=== PATIENT | male | born 1980 | race Two or more races ===

== ENCOUNTER 2018-07-16 18:04 | Emergency (ER) | payer OTHER, SELFPAY ==
[~2018-07-16] VITALS: Ht 172.7 cm; Wt 81.8 kg
[2018-07-16] MEDS ORDERED: GLUCAGON FOR INJ 1 MG VIAL (J1610) IV STA (18:21)
[2018-07-16 20:26] VITALS: BP 127/78
== END 2018-07-16 21:36 | disposition home or self-care (01) ==
LOC: M ED 18:04
DX: S10.15XA Superficial foreign body of throat, initial encounter (principal); X58.XXXA Exposure to other specified factors, initial encounter; Y92.9 Unspecified place or not applicable; Y93.89 Activity, other specified; Y99.9 Unspecified external cause status; R13.10 Dysphagia, unspecified; F10.20 Alcohol dependence, uncomplicated
CPT/HCPCS: 96374; 99284; J1610

== ENCOUNTER 2018-11-09 11:35 | Day surgery (SDC) | payer OTHER ==
[~2018-11-09] VITALS: Ht 172.7 cm; Wt 85.7 kg
[~2018-11-09 11:35] MED LIST: NS 1,000 ML IV ONE
[2018-11-09] MEDS ORDERED: fentaNYL 100 MCG/2 ML INJECTION (J3010) As Ordered ONE (12:07)
[2018-11-09] MEDS ORDERED: LIDOCAINE 2% INJ 100 MG/5 ML SDV (FOR ANES.) As Ordered ONE (12:08)
[2018-11-09] MEDS ORDERED: PROPOFOL 200 MG/20 ML VIAL As Ordered ONE ×2 (12:08→12:37)
--- NOTE | 2018-11-09 12:44 | ROOR ---
Patient Name: Pedrito Watson Procedure Date: 11/09/2018 12:22 PM Date of : 1980 Age: 38 Room: [facility] Gender: Male Note Status: Finalized Procedure: Upper Endoscopy + Biopsies + Balloon Dilatation Indications: Dysphagia Providers: Daniel Roger MD Referring MD: Rafael ALEJO MD Requesting Provider: Medicines: Monitored Anesthesia Care Complications: No immediate complications. Procedure: Pre-Anesthesia Assessment: - The heart rate, respiratory rate, oxygen saturations, blood pressure, adequacy of pulmonary ventilation, and response to care were monitored throughout the procedure. The Endoscope was introduced through the mouth, and advanced to the second part of duodenum. The upper GI endoscopy was accomplished without difficulty. The patient tolerated the procedure well. Findings: The Z-line was irregular and was found 40 cm from the incisors. Multiple biopsies were obtained with cold forceps for evaluation to rule out Simpson's Esophagus randomly at the gastroesophageal junction. Mucosal changes including ringed esophagus were found in the entire esophagus. Biopsies were taken with a cold forceps for histology. A TTS dilator was passed through the scope. Dilation with a 15-16.5-18 mm balloon dilator was performed to 18 mm in the entire esophagus. No other significant abnormalities were identified in a careful examination of the stomach. The exam of the duodenum was otherwise normal. Impression: - Z-line irregular, 40 cm from the incisors. - Esophageal mucosal changes suggestive of eosinophilic esophagitis. Biopsied. - Multiple biopsies were obtained at the gastroesophageal junction. - Dilation performed in the entire esophagus. - The examination was otherwise normal. Recommendation: - Patient has a contact number available for emergencies. The signs and symptoms of potential delayed complications were discussed with the patient. Return to normal activities tomorrow. Written discharge instructions were provided to the patient. - High fiber diet. - Discharge patient to home. - Follow an antireflux regimen. - Use Prilosec (omeprazole) 40 mg PO daily. - Await pathology results. - Telephone GI clinic for pathology results in 1 week. - The findings and recommendations were discussed with the patient's family. Daniel Roger MD Daniel Roger MD 11/09/2018 12:44:12 PM Electronically signed by Daniel Roger MD Number of Addenda: 0 Note Initiated On: 11/09/2018 12:22 PM Estimated Blood Loss: Estimated blood loss: none.
[2018-11-09 13:20] VITALS: BP 118/72
== END 2018-11-09 13:18 | disposition home or self-care (01) ==
LOC: M OPP 11:35
PROVIDERS: ATTEND Internal Medicine Gastroenterology
DX: K22.8 Other specified diseases of esophagus (principal); R13.10 Dysphagia, unspecified
CPT/HCPCS: 43239; 43249; 88305; J3010

== ENCOUNTER → 2019-05-07 | Outpatient (CLI) | payer MEDICAID, SELFPAY | LOC: M OUTALCOH 07:41 | PROVIDERS: ATTEND Psychiatry & Neurology Psychiatry | DX: Z03.89 Encounter for observation for other suspected diseases and conditions ruled out (principal) ==

== ENCOUNTER 2019-05-14 15:43 | Outpatient (RCR) | payer MEDICAID | END 2019-06-12 | LOC: M OUTALCOH 15:43 | PROVIDERS: ATTEND Psychiatry & Neurology Psychiatry | DX: Z03.89 Encounter for observation for other suspected diseases and conditions ruled out (principal) ==

== ENCOUNTER → 2020-09-18 | Outpatient (REF) | payer OTHER ==
[2020-09-18 18:39] LABS: ALBUMIN 4.3 GM/DL (3.2-5.2); ALT/SGPT 27 U/L (12-78); BILIRUBIN,TOTAL 0.3 MG/DL (0.2-1.0); BLOOD UREA NITROGEN 16 MG/DL (7-18); CALCIUM LEVEL 8.6 MG/DL (8.5-10.1); CARBON DIOXIDE LEVEL 29 MEQ/L (21-32); CHLORIDE LEVEL 108 MEQ/L (98-107); CHOLESTEROL LEVEL 144 MG/DL (<200); CHOLESTEROL RISK RATIO 3.789 (<5); CREATININE FOR GFR 1.05 MG/DL (0.70-1.30); GLOMERULAR FILTRATION RATE > 60.0 (>60); GLUCOSE, FASTING 90 MG/DL (70-100); HDL CHOLESTEROL 38 MG/DL (>40); LDL CHOLESTEROL 82 MG/DL (<100); NON-HDL-C 106 MG/DL; POTASSIUM SERUM 4.2 MEQ/L (3.5-5.1); SODIUM LEVEL 141 MEQ/L (136-145); TOTAL 25(OH) VITAMIN D 17.7 NG/ML (30.0-100.0); TOTAL PROTEIN 7.9 GM/DL (6.4-8.2); TRIGLYCERIDES LEVEL 118 MG/DL (<150)
== END ==
LOC: M LAB REF 17:16
PROVIDERS: ATTEND Pediatrics
DX: Z13.220 Encounter for screening for lipoid disorders (principal); E55.9 Vitamin D deficiency, unspecified; Z13.228 Encounter for screening for other metabolic disorders

== ENCOUNTER → 2020-10-02 | Outpatient (CLI) | payer BC, OTHER ==
--- NOTE | 2020-10-02 10:01 | REP ---
INDICATION: F/U BILATERAL SHOULDER PAIN. COMPARISON: No comparison radiographs.. TECHNIQUE: Bilateral shoulder series: Total of 9 views provided. FINDINGS: Multiple views of the left shoulder demonstrate a orthopedic are retention device in the proximal humerus suggesting previous biceps tendon surgery. The distal clavicle appears to have been resected as well. There is no erosive change. Periarticular soft tissues are unremarkable. On the right, there are accessory ossicles adjacent to the resected end of the right distal clavicle. Glenohumeral and acromioclavicular joints are otherwise normally aligned. Periarticular soft tissues are unremarkable on the right. IMPRESSION: No acute bony abnormality. Postsurgical changes bilaterally as above. <Electronically signed by Elliott Dyer > 10/02/20 [id number]
== END ==
LOC: M SOG 09:03
PROVIDERS: ATTEND Orthopaedic Surgery Sports Medicine
DX: M75.41 Impingement syndrome of right shoulder (principal); M75.42 Impingement syndrome of left shoulder

== ENCOUNTER → 2020-11-02 | Outpatient (CLI) | payer BC, OTHER ==
--- NOTE | 2020-11-02 16:44 | REP ---
INDICATION: ROTATOR CUFF TEAR POSS. COMPARISON: 08/06/2011 TECHNIQUE: 3T multiplanar MRI imaging of the left was obtained using various sequences. FINDINGS: There is moderate hypertrophic degenerative change seen involving the acromioclavicular joint which has increased from the prior exam. [id number] patchy and linear T2 hyper signal is seen in the supraspinatus tendon without evidence of supraspinatus muscle belly atrophy or musculotendinous retraction. The acromion process is type 2 status quo. No abnormal signal is seen in the subscapularis, infraspinatus, or teres minor tendons. The biceps tendon resides within the bicipital groove. There is no glenohumeral joint effusion. The marrow signal is within normal limits. 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 There is supraspinatus tendinitis/tendinosis which has also increased somewhat from the prior exam. Other findings as described above. <Electronically signed by Jackson Mckeon > 11/02/20 [id number]
--- NOTE | 2020-11-02 16:50 | REP ---
INDICATION: MALENA IMPINGMENT SYNDROME W/ PAIN ? RCT. COMPARISON: 08/06/2011 TECHNIQUE: 3T multiplanar MRI imaging of the was obtained using various sequences. FINDINGS: There has been distal clavicular excision since the prior exam. The postoperative AC joint is widely gaped. There is no abnormal signal seen in the postoperative bed. There is patchy and linear T2 hyper signal seen in the supraspinatus tendon without evidence of supraspinatus muscle belly atrophy or musculotendinous retraction. Patchy T2 hyper signal is seen in the infraspinatus tendon. Normal appearing signal is seen throughout the subscapularis and teres minor tendons. The biceps tendon resides within the bicipital groove. There is no evidence of a glenohumeral joint effusion. IMPRESSION: 1. Supraspinatus tendinitis/tendinosis. 2. Postoperative changes as described above. <Electronically signed by Jackson Mckeon > 11/02/20 [id number]
== END ==
LOC: M PLARAD 15:05
PROVIDERS: ATTEND Orthopaedic Surgery Sports Medicine
DX: M75.42 Impingement syndrome of left shoulder (principal); M75.41 Impingement syndrome of right shoulder

== ENCOUNTER → 2020-11-06 | Outpatient (CLI) | payer BC, OTHER | LOC: M SOG 08:39 | PROVIDERS: ATTEND Orthopaedic Surgery Sports Medicine | DX: Z00.00 Encounter for general adult medical examination without abnormal findings (principal) ==

== ENCOUNTER 2023-02-21 19:50 | Observation (INO) | payer BC, OTHER, SELFPAY ==
[~2023-02-21] VITALS: Ht 170.2 cm; Wt 94.0 kg
[2023-02-21] MEDS ORDERED: NS 1,000 ML IV ONE (19:55)
[2023-02-21] MEDS ORDERED: FAMOTIDINE 20MG/2ML VIAL IVP ONE (19:55)
[2023-02-21 20:14] LABS: ABG BASE EXCESS -1.8 (-2.0-2.0); ABG HCO3 21.7 MMOL/L (22.0-26.0); ABG O2 SATURATION 98.7 % (95.0-99.0); ABG PARTIAL PRESSURE CO2 33.8 mmHg (35.0-45.0); ABG PARTIAL PRESSURE O2 121.7 mmHg (75.0-100.0); ABG TOTAL CO2 22.7 MMOL/L (22.0-29.0); ABG pH (ARTERIAL) 7.425 UNITS (7.350-7.450)
[2023-02-21 20:27] LABS: HEMATOCRIT 44.9 % (42.0-52.0); HEMOGLOBIN 15.5 g/dl (13.5-17.5); MEAN CORPUSCULAR HEMOGLOBIN 30.4 pg (27.0-33.0); MEAN CORPUSCULAR HGB CONC 34.5 g/dl (32.0-36.5); PLATELET COUNT, AUTOMATED 367 10^3/uL (150-450); WHITE BLOOD COUNT 12.8 10^3/uL (4.0-10.0)
[2023-02-21 20:54] LABS: ALBUMIN 3.9 G/DL (3.2-5.2); ALKALINE PHOSPHATASE 80 U/L (46-116); ALT/SGPT 56 U/L (7.0-40); AST/SGOT 26 U/L (<34); BILIRUBIN,DIRECT 0.2 MG/DL (<0.4); BILIRUBIN,TOTAL 0.6 MG/DL (0.3-1.2); BLOOD UREA NITROGEN 19 MG/DL (9-23); CALCIUM LEVEL 8.4 MG/DL (8.5-10.1); CARBON DIOXIDE LEVEL 24 MMOL/L (20-31); CHLORIDE LEVEL 106 MMOL/L (98-107); CREATININE FOR GFR 1.26 MG/DL (0.70-1.30); GLOMERULAR FILTRATION RATE > 60.0 (>60); GLUCOSE, FASTING 159 MG/DL (60-100); SODIUM LEVEL 142 MMOL/L (136-145); TOTAL PROTEIN 6.9 G/DL (5.7-8.2)
[2023-02-21 20:57] LABS: ATYPICAL LYMPH 3 % (0-5); EOSINOPHILS 4 % (0-3); LYMPHOCYTES 49 % (16-44); MONOCYTES 7 % (0-5); NEUTROPHILS 36 % (28-66); PLATELET ESTIMATE NORMAL (NORMAL)
[2023-02-21 20:59] LABS: ANISOCYTOSIS 1+; MICROCYTOSIS 1+
[2023-02-21 22:01] LABS: C REACTIVE PROTEIN QUANTITATIV < 0.40 MG/DL (<1.0)
[2023-02-21] MEDS ORDERED: MELO15TA28 PO (23:50)
[2023-02-21] MEDS ORDERED: AMIT25TA19 PO (23:50)
[2023-02-21] MEDS ORDERED: GABA-1171 PO (23:50)
[2023-02-21] MEDS ORDERED: HOME MED LIST COMPLETE! XX SCH (23:55)
[2023-02-22] MEDS ORDERED: diphenhydrAMINE 50MG/ML VIAL IV PRN (00:30)
[2023-02-22] MEDS ORDERED: ALBUTEROL SULFATE 2.5MG/0.5ML INH NEB SOLN NEB PRN (00:30)
[2023-02-22] MEDS ORDERED: ONDANSETRON 4MG 2ML VIAL IV PRN (00:30)
[2023-02-22] MEDS: methylPREDNISolone 40MG 1ML VIAL IV SCH ×2 (01:54→06:17)
[2023-02-22] MEDS: NS 1,000 ML IV SCH ×2 (01:54→10:30)
[2023-02-22 06:57] LABS: BLOOD UREA NITROGEN 17 MG/DL (9-23); CALCIUM LEVEL 8.4 MG/DL (8.5-10.1); CARBON DIOXIDE LEVEL 24 MMOL/L (20-31); CHLORIDE LEVEL 107 MMOL/L (98-107); CREATININE FOR GFR 0.96 MG/DL (0.70-1.30); GLOMERULAR FILTRATION RATE > 60.0 (>60); GLUCOSE, FASTING 136 MG/DL (60-100); POTASSIUM SERUM 4.1 MMOL/L (3.5-5.1); SODIUM LEVEL 139 MMOL/L (136-145)
[2023-02-22 08:15] VITALS: TEMP 96.2
[2023-02-22] MEDS ORDERED: CETIRIZINE (ZyrTEC) 10 MG TAB PO ONE (08:15)
[2023-02-22] MEDS ORDERED: methylPREDNISolone 125MG 2ML VIAL IV ONE ×2 (08:15→14:00)
[2023-02-22] MEDS ORDERED: EPIP0.3I2 IM (08:23)
[2023-02-22] MEDS ORDERED: PRED5PAK PO (08:23)
[2023-02-22] MEDS ORDERED: PEPC1TAB5 PO (08:23)
[2023-02-22] MEDS ORDERED: ALLE10TA62 PO (08:23)
[2023-02-22] MEDS ORDERED: FAMOTIDINE 20MG/2ML VIAL IVP SCH (09:00)
[2023-02-22] MEDS ORDERED: ISOVUE-370 76% 100ML VIAL As Ordered ONE (09:31)
[2023-02-22] MEDS ORDERED: NS 1,000 ML IV ONE ×2 (10:00→11:00)
[2023-02-22 14:15] VITALS: BP 133/80; O2SAT 96
== END 2023-02-22 15:24 | disposition home or self-care (01) ==
LOC: EDBD 19:50 → M ED 19:50 → M ED INP 19:51
PROVIDERS: ADMIT Internal Medicine; ATTEND Internal Medicine
DX: T63.461A Toxic effect of venom of wasps, accidental (unintentional), initial encounter (principal); R55 Syncope and collapse; G40.309 Generalized idiopathic epilepsy and epileptic syndromes, not intractable, without status epilepticus; R42 Dizziness and giddiness; I95.9 Hypotension, unspecified; E87.20 Acidosis, unspecified; Z91.048 Other nonmedicinal substance allergy status; Z91.030 Bee allergy status; Z79.899 Other long term (current) drug therapy
CPT/HCPCS: 36415; 36600; 70450; 70491; 71045; 80048; 80076; 82803; 83605; 84146; 85025; 86140; 87635; 93005; 93041; 94760; 96361; 96374; 96375; 96376; 99285; J2920; J2930; Q9967; S0028

== ENCOUNTER → 2023-02-28 | Outpatient (CLI) | payer BC, OTHER ==
[~2023-02-28] MED LIST changes: +ALLE10TA62 PO; +AMIT25TA19 PO; +EPIP0.3I2 IM; +GABA-1171 PO; +ISOVUE-300 61% 100ML VIAL As Ordered ONE; +LIDOCAINE 1% MDV 20ML VIAL As Ordered ONE; +MELO15TA28 PO; -NS 1,000 ML IV ONE; +PEPC1TAB5 PO; +PRED5PAK PO; +methylPREDNISolone SUSP 40MG/ML 1ML VIAL (DEPO MEDROL) As Ordered ONE
== END ==
LOC: M RAD 13:16
PROVIDERS: ATTEND Physician Assistant
DX: M19.012 Primary osteoarthritis, left shoulder (principal); M19.011 Primary osteoarthritis, right shoulder
CPT/HCPCS: 20610; 77002; J1030; Q9967

== ENCOUNTER → 2023-03-18 | Outpatient (REF) | payer OTHER ==
[~2023-03-18] MED LIST changes: -ISOVUE-300 61% 100ML VIAL As Ordered ONE; -LIDOCAINE 1% MDV 20ML VIAL As Ordered ONE; -methylPREDNISolone SUSP 40MG/ML 1ML VIAL (DEPO MEDROL) As Ordered ONE
[2023-03-18 12:35] LABS: RSV AMPLIFICATION NEGATIVE (NEGATIVE)
== END ==
LOC: M LAB REF 11:15
PROVIDERS: ATTEND Physician Assistant Medical
DX: J02.9 Acute pharyngitis, unspecified (principal)

== ENCOUNTER → 2024-03-29 | Outpatient (CLI) | payer OTHER | LOC: M RAD 10:41 | PROVIDERS: ATTEND Physician Assistant Medical | DX: R05.9 Cough, unspecified (principal); R06.02 Shortness of breath; J18.9 Pneumonia, unspecified organism ==